=== PATIENT | male | born 1950 ===

== ENCOUNTER 2017-09-02 13:33 | Emergency (ER) | payer SELFPAY ==
[~2017-09-02] VITALS: Ht 180.3 cm; Wt 94.0 kg
[2017-09-02 13:39] VITALS: BP 205/96; PULSE 103; RESP 16; TEMP 98.8; O2SAT 100
[2017-09-02] MEDS ORDERED: SODIUM CHLORIDE 0.9% FLUSH 10 ML FLUSH IVF PRN (14:00)
[2017-09-02 14:07] LABS: I-STAT POTASSIUM 3.2 MMOL/L (3.5-4.9); I-STAT SODIUM 143 MMOL/L (138-146)
[2017-09-02 14:08] LABS: AUTOMATED NEUTROPHIL # 3.6 TH/MM3 (1.8-7.7); BASOPHIL % 0.6 % (0.0-2.0); EOSINOPHIL # 0.1 TH/MM3 (0-0.4); EOSINOPHIL % 0.9 % (0.0-4.0); HEMATOCRIT 44.4 % (39.0-51.0); HEMO FLAGS DIFF FINAL; LYMPH % 31.6 % (9.0-44.0); MEAN CORPUSCULAR HEMOGLOBIN 29.9 PG (27.0-34.0); NEUT % 57.9 % (16.0-70.0); PLATELET COUNT 172 TH/MM3 (150-450); RED BLOOD COUNT 5.04 MIL/MM3 (4.50-5.90); RED CELL DISTRIBUTION WIDTH 13.3 % (11.6-17.2); WHITE BLOOD COUNT 6.2 TH/MM3 (4.0-11.0)
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
[2017-09-02 14:17] LABS: INTERNATIONAL NORMALIZED RATIO 0.9 RATIO; PROTHROMBIN TIME - PATIENT 10.4 SEC (9.8-11.6)
[2017-09-02 14:23] LABS: ALCOHOL LESS THAN 3 MG/DL (0-5)
[2017-09-02 14:26] VITALS: RESP 16; O2SAT 98
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
[2017-09-02 15:02] VITALS: BP 170/82; PULSE 93; RESP 20; O2SAT 100
[2017-09-02 16:01] VITALS: BP 148/61
[2017-09-02] MEDS ORDERED: SODIUM CHLOR 0.9% 1000 ML INJ 1,000 ML IV SCH (17:25)
[2017-09-02] MEDS ORDERED: CHLORHEXIDINE GLUCONATE 2 % 1 PACK (2 CLOTHS) TOP PRN (17:30)
[2017-09-02] MEDS ORDERED: MISCELLANEOUS NURSING INFORMATION XX SCH (17:30)
[2017-09-02] MEDS ORDERED: fentaNYL DRIP 250 ML IV PRN (17:30)
[2017-09-02] MEDS ORDERED: PROPOFOL 1000 MG/100 ML INJ 100 ML IV PRN (17:30)
[2017-09-02] MEDS ORDERED: DOCUSATE SODIUM 50 MG/SENNA 8.6 MG TAB PO SCH (21:00)
[2017-09-02] MEDS ORDERED: FAMOTIDINE 20 MG/2 ML VIAL IV PUSH SCH (21:00)
[2017-09-03] MEDS ORDERED: CHLORHEXIDINE GLUCONATE 2 % 1 PACK (2 CLOTHS) TOP SCH (04:00)
== END 2017-09-02 17:28 | disposition home or self-care (01) ==
LOC: NEPE 13:33
DX: R20.2 Paresthesia of skin (principal); S16.1XXA Strain of muscle, fascia and tendon at neck level, initial encounter; M54.5 Low back pain; F41.9 Anxiety disorder, unspecified; R06.4 Hyperventilation; Z85.46 Personal history of malignant neoplasm of prostate; V89.2XXA Person injured in unspecified motor-vehicle accident, traffic, initial encounter
CPT/HCPCS: 70450; 71010; 72125; 72128; 72131; 72170; 80307; 82435; 82565; 82947; 83690; 84132; 84295; 84520; 85025; 85610; 85730; 86850; 86900; 86901; 99285